=== PATIENT | male | born 1960 | race Two or more races ===

== ENCOUNTER 2018-10-02 18:54 | Emergency (ER) | payer SELFPAY ==
[~2018-10-02] VITALS: Ht 182.9 cm; Wt 89.2 kg
[2018-10-02 19:01] VITALS: BP 153/93
--- NOTE | 2018-10-02 19:06 | NUR ---
C Collar placed on patient,placed to wheelchair awaiting RME room availability
[2018-10-02] MEDS ORDERED: METHOCARBAMOL 750 MG TABLET ONE (19:41)
[2018-10-02] MEDS ORDERED: IBUPROFEN 200 MG TABLET ONE (19:42)
[2018-10-02] MEDS ORDERED: METHOCARBAMOL 750 MG TABLET PO ONE (20:00)
[2018-10-02] MEDS ORDERED: IBUPROFEN 600 MG TABLET PO ONE (20:00)
== END 2018-10-02 20:48 | disposition home or self-care (01) ==
LOC: ED 20:42
DX: S16.1XXA Strain of muscle, fascia and tendon at neck level, initial encounter (principal); S29.012A Strain of muscle and tendon of back wall of thorax, initial encounter; V89.0XXA Person injured in unspecified motor-vehicle accident, nontraffic, initial encounter; Y93.89 Activity, other specified; Y92.89 Other specified places as the place of occurrence of the external cause; Y99.8 Other external cause status
CPT/HCPCS: 72072; 72125; 99284